=== PATIENT | male | born 1955 | race African-American/Black ===

== ENCOUNTER 2018-02-08 18:19 | Emergency (ER) | payer MEDICAID ==
[~2018-02-08] VITALS: Ht 182.9 cm; Wt 74.0 kg
[2018-02-08 18:23] VITALS: BP 106/68
== END 2018-02-08 22:30 | disposition left against medical advice (07) ==
LOC: ER 19:59
DX: Z04.8 Encounter for examination and observation for other specified reasons (principal); Z53.21 Procedure and treatment not carried out due to patient leaving prior to being seen by health care provider